=== PATIENT | male | born 1965 | race Caucasian/White ===

== ENCOUNTER → 2022-07-22 14:14 | Outpatient (BNVA) | payer MEDICARE, SELFPAY | PROVIDERS: PCP Family Medicine; Visit Provider Specialist | DX: G62.9 Polyneuropathy, unspecified (principal); R25.2 Cramp and spasm; R26.89 Other abnormalities of gait and mobility; M21.961 Unspecified acquired deformity of right lower leg; M21.962 Unspecified acquired deformity of left lower leg | CPT/HCPCS: 99204 ==

== ENCOUNTER 2023-02-16 11:00 | Outpatient (CLI) | payer MEDICARE, SELFPAY ==
--- NOTE | 2023-02-16 11:00 | MR_ITS ---
WS: [id number] MRI CERVICAL SPINE NONCONTRAST TECHNIQUE: Sagittal T1, T2 and STIR imaging. Axial T2, gradient, and fiesta imaging. CLINICAL INFORMATION: G62.9 - Polyneuropathy, unspecified COMPARISON: None. FINDINGS: Normal cervical alignment. No high-grade central canal stenosis. Cord signal is normal. C2-C3: Normal. C3-C4: Slight retrolisthesis C3 on C4. Mild disc osteophyte complex with endplate ridging. Mild facet arthropathy. Moderate RIGHT greater than LEFT bony foraminal narrowing. Mild central canal stenosis with central disc osteophyte protrusion and slight indentation on cervical cord. C4-C5: Slight retrolisthesis. Tiny central disc osteophyte protrusion. Slight indentation on cervical cord. Mild central canal stenosis. Mild facet arthropathy. Mild LEFT greater than RIGHT bony foramin al narrowing. C5-C6: Disc osteophyte complex with endplate ridging. Moderate bilateral bony foraminal narrowing. Mo derate facet arthropathy. Mild central canal stenosis. C6-C7: Central disc protrusion with slight indentation on cervical cord. Mild central canal stenosis. Mild facet arthropathy. Moderate LEFT and mild RIGHT bony foraminal narrowing. C7-T1: Slight anterolisthesis. Mild LEFT and no significant RIGHT foraminal narrowing. Mild facet art hropathy. Visualized brain stem structures: Normal. Prevertebral soft tissues: Normal. MR/MR cervical spin wo con* [id number] IMPRESSION: 1. Normal cervical alignment. Cord signal is normal. 2. Mild central canal stenosis C3-C4 C4-C5 C5-C6 and C6-C7. 3. Small disc osteophyte protrusions with slight indentation on cervical cord at C3-C4 C4-C5 and C6-C7. 4. Moderate bony foraminal narrowing worse at RIGHT C3-C4, bilateral C5-C6 wor se in the RIGHT, and LEFT C6-C7. 5. Mild to moderate facet arthropathy worse at bilateral C4-C5 and C5-C6.
== END 2023-02-16 11:01 | disposition home or self-care (01) ==
LOC: RAD 11:05
PROVIDERS: PCP Family Medicine; Visit Provider Specialist
DX: G62.9 Polyneuropathy, unspecified (principal); R26.9 Unspecified abnormalities of gait and mobility; M48.02 Spinal stenosis, cervical region; M47.892 Other spondylosis, cervical region
CPT/HCPCS: 72141